=== PATIENT | male | born 1960 | race Caucasian/White ===

== ENCOUNTER 2017-09-26 14:08 | Inpatient (IN) | payer MEDICAID, OTHER ==
[2017-09-26] MEDS ORDERED: LORazepam 2 MG/ML INJ IVP ONE ×2 (14:23→14:44)
[2017-09-26] MEDS ORDERED: NS 1,000 ML IV ONE ×2 (14:24→16:43)
[2017-09-26] MEDS ORDERED: LORazepam 2 MG/ML INJ ONE (14:25)
--- NOTE | 2017-09-26 14:26 | EDPHY ---
H & P Stated Complaint: etoh w/d Time Seen by Provider: 09/26/17 14:18 HPI/ROS: CHIEF COMPLAINT: "I think I have alcohol poisoning" HISTORY OF PRESENT ILLNESS: 56-year-old male history of alcoholism, discharged from [facility] [place] 3 weeks ago for alcohol detoxification, started drinking alcohol again 1 week ago, in the ER with friend complaining of possible alcohol withdrawal. He is experiencing anxiety, tremor, nausea,. Denies hallucination. No seizure. No chest pain. No back pain. [ REVIEW OF SYSTEMS: A ten point review of systems was performed and is negative with the exception of the items mentioned in the HPI PAST MEDICAL & SURGICAL HISTORY: History of alcoholism. Reactive airways disease. SOCIAL HISTORY: Last drink of alcohol 2 hr ago PHYSICAL EXAM (Prior to examination, patient consented to physical exam, hands were washed and my usual and customary physical exam procedures followed) 1) GENERAL: Well-developed, well-nourished, alert and oriented. Appears anxious. Answering questions appropriately 2) HEAD: Normocephalic, atraumatic 3) HEENT: scleral icterus noted. Nasopharynx, oropharynx, clear, no lesions. Dry mucous membranes Ears bilaterally with normal tympanic membranes. 4) NECK: Full range of motion, no meningeal signs. 5) LUNGS: Clear auscultation bilaterally, no wheezes, no rhonchi, no retractions. 6) HEART: Regular rate and rhythm, no murmur, no heave, no gallop. 7) ABDOMEN: No guarding, no rebound, no focal tenderness, negative McBurney's, negative Sena's, negative Rovsing's, negative peritoneal sign, 8) MUSCULOSKELETAL: Moving all extremities, no focal areas of tenderness, no obvious trauma. No peripheral edema or discoloration. 9) BACK: No CVA tenderness, no midline vertebral tenderness, no fluctuance, no step-off, no obvious trauma, no visual or palpable abnormality. 10) SKIN: No rash, no petechiae. 11) Psychiatric: Patient is oriented X 3, there is no agitation. Tremulous DIFFERENTIAL DIAGNOSIS: In no particular order including but not limited to alcohol withdrawal, delirium tremens, alcohol hallucinosis, hepatic encephalopathy - Personal History Current Tetanus Diphtheria and Acellular Pertussis (TDAP): Yes - Medical/Surgical History Other PMH: etoh abuse, kyle knee surgery, reactive airway - Social History Smoking Status: Never smoked Constitutional: Initial Vital Signs Temperature (C) 36.8 C 09/26/17 14:13 Heart Rate 134 H 09/26/17 14:13 Respiratory Rate 18 09/26/17 14:13 Blood Pressure 166/110 H 09/26/17 14:13 O2 Sat (%) 95 09/26/17 14:13 O2 Delivery Mode Room Air Allergies/Adverse Reactions: No Known Allergies Allergy (Unverified 09/26/17 14:13) Home Medications: Medication Instructions Recorded ALBUTEROL SULFATE 09/26/17 Medical Decision Making ED Course/Re-evaluation: 2:26 p.m.: Patient is tremulous, tachycardic. Will administer benzodiazepines , IV fluid, observe patient. 4:50 p.m.: Re-evaluation, the pelvis the patient she did respond well to a benzodiazepines, became progressively more tachycardic, hypertensive, tremulous. He is given further benzodiazepines with minimal response. Recommended admission to the hospital for acute alcohol withdrawal. At this time doubt delirium tremens. He has no hallucination. discussed case with secondary supervising physician Dr. Shan Mack in the ER. Plan will be admission to hospitalist 5:00 p.m.: Consultation with hospitalist Dr. Quinones will admit patient to the ICU for acute alcohol withdrawal - Data Points Laboratory Results: Laboratory Results 09/26/17 14:50 09/26/17 14:50 09/26/17 09/26/17 14:50 14:50 WBC 7.82 10^3/uL 10^3/uL (3.80-9.50) RBC 5.04 10^6/uL 10^6/uL (4.40-6.38) Hgb 16.5 g/dL g/dL (13.7-17.5) Hct 44.7 % % (40.0-51.0) MCV 88.7 fL fL (81.5-99.8) MCH 32.7 pg pg (27.9-34.1) MCHC 36.9 g/dL H g/dL (32.4-36.7) RDW 13.4 % % (11.5-15.2) Plt Count 149 10^3/uL L 10^3/uL (150-400) MPV 9.7 fL fL (8.7-11.7) Neut % (Auto) 79.2 % H % (39.3-74.2) Lymph % (Auto) 14.6 % L % (15.0-45.0) [place] % (Auto) 5.6 % % (4.5-13.0) Eos % (Auto) 0.1 % L % (0.6-7.6) Baso % (Auto) 0.1 % L % (0.3-1.7) Nucleat RBC Rel Count 0.0 % % (0.0-0.2) Absolute Neuts (auto) 6.19 10^3/uL 10^3/uL (1.70-6.50) Absolute Lymphs (auto) 1.14 10^3/uL 10^3/uL (1.00-3.00) Absolute Monos (auto) 0.44 10^3/uL 10^3/uL (0.30-0.80) Absolute Eos (auto) 0.01 10^3/uL L 10^3/uL (0.03-0.40) Absolute Basos (auto) 0.01 10^3/uL L 10^3/uL (0.02-0.10) Absolute Nucleated RBC 0.00 10^3/uL 10^3/uL (0-0.01) Immature Gran % 0.4 % % (0.0-1.1) Immature Gran # 0.03 10^3/uL 10^3/uL (0.00-0.10) Sodium 137 mEq/L mEq/L (135-145) Potassium 3.2 mEq/L L mEq/L (3.3-5.0) Chloride 99 mEq/L mEq/L (97-110) Carbon Dioxide 20 mEq/l L mEq/l (22-31) Anion Gap 18 mEq/L H mEq/L (8-16) BUN 7 mg/dL mg/dL (7-23) Creatinine 0.9 mg/dL mg/dL (0.7-1.3) Estimated GFR > 60 Glucose 114 mg/dL H mg/dL (70-100) Calcium 9.0 mg/dL mg/dL (8.5-10.4) Total Bilirubin 0.8 mg/dL mg/dL (0.1-1.4) Conjugated Bilirubin 0.2 mg/dL mg/dL (0.0-0.5) Unconjugated Bilirubin 0.6 mg/dL mg/dL (0.0-1.1) AST 54 IU/L IU/L (17-59) ALT 45 IU/L IU/L (21-72) Alkaline Phosphatase 119 IU/L IU/L (38-126) Total Protein 6.8 g/dL g/dL (6.3-8.2) Albumin 4.1 g/dL g/dL (3.5-5.0) Lipase 432 IU/L H IU/L (23-300) Ethyl Alcohol 383 mg/dL H mg/dL (0-10) Medications Given: Discontinued Medications Sodium Chloride (Ns) 1,000 mls @ 0 mls/hr IV ONCE ONE PRN Reason: Wide Open Stop: 09/26/17 14:25 Last Admin: 09/26/17 14:46 Dose: 1,000 mls Sodium Chloride (Ns) 1,000 mls @ 3,000 mls/hr IV ONCE ONE Stop: 09/26/17 17:02 Last Admin: 09/26/17 16:43 Dose: 1,000 mls Lorazepam (Ativan Injection) 2 mg IVP EDNOW ONE Stop: 09/26/17 14:24 Last Admin: 09/26/17 14:46 Dose: 2 mg Lorazepam (Ativan Injection) 2 mg IVP EDNOW ONE Stop: 09/26/17 14:45 Last Admin: 09/26/17 16:21 Dose: 2 mg Departure - Departure Disposition: [facility] Acute Clinical Impression: Alcohol withdrawal Qualifiers: Complication of substance-induced condition: with unspecified complication Qualified Code(s): F10.239 - Alcohol dependence with withdrawal, unspecified Condition: Fair
--- NOTE | 2017-09-26 14:55 | CPEKG ---
Heart Rate: 108 RR Interval: 556 P-R Interval: 152 QRSD Interval: 100 QT Interval: 344 QTC Interval: 461 P Corrigan: 53 QRS Corrigan: 27 T Wave Corrigan: 14 EKG Severity - BORDERLINE ECG - EKG Impression: SINUS TACHYCARDIA EKG Impression: BORDERLINE T WAVE ABNORMALITIES Electronically Signed By: Shan Mack 26-Sep-2017 21:36:00
[2017-09-26 15:06] LABS: PLATELET COUNT 149 10^3/uL (150-400)
--- NOTE | 2017-09-26 17:22 | ASMTCMCOM ---
CM Note CM Note Notes: Pt presented to the ED through triage for ETOH withdrawal symptoms. Pt admitted for acute ETOH withdrawal. Spoke w/pt and his friend, Aldair, at bedside. Pt was recently discharged from [facility] approximately 3 wks ago and was involved in their outpatient program until he started drinking again about 1 week ago. As for family and friends support other than Bill, pt states he has a girlfriend and his elderly father. Pt states he completed the [facility] rehabilitation program in [place] ([phone]) about 5 yrs ago and that he has spoken to his criminal investigator, Sekou, who has told him that they would consider accepting him into the program again. Pt hopes to be able to get into [facility] again and regain sobriety. Pt was also provided lists of other ETOH abuse treatment programs (Residential, IOP, OP) and encouraged him to call and inquire about intake appts/interviews. Pt states he has [employer] and Medicaid. Per Aladir, pt is about to be evicted from his housing. CM to follow. Date Signed: 09/26/2017 05:22 PM Electronically Signed By:Violeta Pleitez RN
[2017-09-26] MEDS ORDERED: FLUMAZENIL 0.5 MG/5 ML MDV IVP PRN (19:06)
[2017-09-26] MEDS ORDERED: PROMETHAZINE HCL 25 MG/ML INJ IVP PRN (19:10)
[2017-09-26] MEDS ORDERED: ONDANSETRON 4 MG/2 ML VIAL IVP PRN (19:10)
--- NOTE | 2017-09-26 19:46 | GHP ---
[f rep st] HISTORY AND PHYSICAL DATE OF ADMISSION: 09/26/2017 CHIEF COMPLAINT: Alcohol withdrawal. HISTORY: The patient is a 56-year-old male with a history of alcoholism but he stayed sober for many years. He got engaged in March and decided to just have a couple of drinks to celebrate his new e ngagement and totally fell off the wagon and has been drinking extremely heavily ever since. He rece ntly had a stay at [facility] but started drinking shortly after discharge. He recently fell w hile intoxicated and was hospitalized at [facility] for a cerebral hemorrhage and spent a prolonged time in the ICU. He again started drinking within days of hospital discharge. He drink s a pint per day. Family friend is at bedside. The friend staged an intervention today bringing the patient to the hospital somewhat against his will, although he was having severe tremors and severe withdrawal symptoms already at the time of presentation despite having an alcohol level of 383. PAST MEDICAL HISTORY: 1. Alcoholism. 2. Recent traumatic cerebral hemorrhage. PAST SURGICAL HISTORY: Bilateral total knee arthroplasty. MEDICATIONS: Please see computerized record for full detailed list. ALLERGIES: No known drug allergies. SOCIAL HISTORY: No smoking, but he does chew tobacco. Alcohol history as above. 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 REVIEW OF SYSTEMS: Complete review of systems obtained. Review of systems negative regarding consti tutional, HEENT, GI, pulmonary, cardiovascular, , hematology, skin, musculoskeletal, endocrine, psy ch except for positives as in HPI. FAMILY HISTORY: Reviewed, noncontributory to presenting complaint. PHYSICAL EXAMINATION: GENERAL: Well-developed, well-nourished male, in no acute distress. VITAL SI GNS: Temperature 36.8, pulse 134, blood pressure 166/110, saturating 96% on room air. EYES: Normal conjunctivae. Pupils react to light. ENT: Normal ears and nose. Hearing intact. Normal teeth. Oropharynx moist. NECK: Trachea midline. No thyromegaly. CHEST: Normal effort. LUNGS: Clear to auscultation bilaterally. CARDIOVASCULAR: Tachycardic. No murmur, no lower extremity edema. ABDO MEN: Soft, nontender. No hepatosplenomegaly. SKIN: Warm, dry, intact without rash. MUSCULOSKELET AL: Strength 5/5 upper and lower extremities. NEUROLOGIC: Cranial nerves intact, normal sensation to light touch. PSYCH: Alert and oriented x3. Normal affect. Normal judgment. Normal memory. LABORATORY DATA: White count 7.82, hematocrit 44.7, platelets 149. Sodium 137, potassium 3.2, chlor duane 99, bicarb 20, BUN 7, creatinine 0.9, glucose 114. LFTs are negative. Lipase is 432. Alcohol l evel 383. EKG viewed by me. My personal interpretation is sinus tachycardia. No ST-T wave changes. ASSESSMENT/PLAN: 1. Alcohol withdrawal: He has already received multiple high doses of Ativan in the emergency room. Anticipate a high level of benzodiazepine and a severe withdrawal. He is therefore being admitted to ICU. 2. Recent traumatic cerebral hemorrhage due to falling down while intoxicated. The patient denies a ny ongoing deficits. 3. Hypokalemia: This will be repleted per protocol and will follow electrolytes. CODE STATUS: Full. ADMISSION STATUS: Will admit to inpatient. I anticipate greater than 2 midnights and anticipate sev ere withdrawal. DVT PROPHYLAXIS: He is high risk. Will place him on subcu Lovenox. /[id number]/MODL
[2017-09-26] MEDS: FAMOTIDINE 20 MG TAB PO SCH (20:12)
[2017-09-26] MEDS: THIAMINE HCL 500 MG in NS 100 ML IV SCH (20:17)
[2017-09-26] MEDS: traZODone 50 MG TAB PO SCH (21:34)
[2017-09-27] MEDS ORDERED: MAGNESIUM SULF 2 GM/WATER 50 ML IV ONE (03:59)
[2017-09-27] MEDS: ENOXAPARIN 40 MG/0.4 ML SYR SC SCH (08:16)
[2017-09-27] MEDS: FAMOTIDINE 20 MG TAB PO SCH ×2 (08:16→21:30)
[2017-09-27] MEDS: LISINOPRIL 10 MG TAB PO SCH (08:16)
[2017-09-27] MEDS: SERTRALINE HCL 50 MG TAB PO SCH (08:16)
[2017-09-27] MEDS: LORazepam 2 MG/ML INJ IVP PRN ×7 (08:16→18:44)
[2017-09-27] MEDS: THIAMINE HCL 500 MG in NS 100 ML IV SCH (09:00)
[2017-09-27] MEDS: ACETAMINOPHEN 325 MG TAB PO PRN (10:03)
[2017-09-27] MEDS ORDERED: PROTOCOL K PHOSPHATE 1 DOSE IV PRN (10:07)
[2017-09-27] MEDS ORDERED: PROTOCOL MAGNESIUM 1 DOSE IV PRN (10:07)
[2017-09-27] MEDS ORDERED: PROTOCOL POTASSIUM 1 DOSE MISC PRN (10:07)
[2017-09-27] MEDS ORDERED: PROTOCOL CALCIUM 1 DOSE IV PRN (10:07)
[2017-09-27] MEDS: NALTREXONE HCL 50 MG TAB PO SCH (10:34)
--- NOTE | 2017-09-27 10:41 | PDMN ---
Medical Necessity Medical necessity: Pt meets IP criteria per & AMEYA M-595; est los >2 mn for eval/tx of severe alcohol withdrawal; admit to ICU for close monitoring, CIWA protocol, IVFs & IV Thiamine; hx recent traumatic cerebral hemorrhage; per H&P & order 09/26/17
--- NOTE | 2017-09-27 11:41 | HOSPPROG ---
Hospitalist Progress Note Assessment/Plan: 56 yo M w alcohol dependence and alcohol withdrawal withdrawal: severe, and at BAL 383 father notes alcohol dependence continue scheduled librium and prn ativan high risk for severe withdrawal alcohol dependence: did well after a 13 [facility] residential program but has done porrly since relapse 4 years sobriety at that point hypokalemia: replete dispo: [facility]: passive suicidality father notes he has mentioned it multiple times, recent stay at [facility] M1 HOLD IF TRIES TO LEAVE AMA! Subjective: case d/w dr miller. father notes passive suicidality, years of alcohol dependence refractory to treatment Objective: Vital Signs Temp Pulse Resp BP Pulse Ox 36.5 C 106 H 18 169/108 H 94 09/27/17 08:00 09/27/17 10:00 09/27/17 10:00 09/27/17 10:00 09/27/17 10:00 Laboratory Results 09/27/17 10:59 09/26/17 09/27/17 09/28/17 05:59 05:59 05:59 Intake Total 4812 500 Balance 4812 500 - Physical Exam Constitutional: no apparent distress, appears nourished Eyes: PERRL, anicteric sclera Ears, Nose, Mouth, Throat: moist mucous membranes, hearing normal Cardiovascular: regular rate and rhythym, no murmur, rub, or gallop Respiratory: no respiratory distress, no rales or rhonchi Gastrointestinal: normoactive bowel sounds, soft, non-tender abdomen Genitourinary: no bladder fullness, No [place] in urethra Skin: warm, normal color Musculoskeletal: full muscle strength Neurologic: AAOx3 ICD10 Worksheet Patient Problems: Problems Problem Status Onset Alcohol withdrawal Acute
[2017-09-27] MEDS ORDERED: K PHOS 15 MMOL in D5W 250 ML IV ONE (12:00)
[2017-09-27] MEDS ORDERED: CALCIUM GLUCONATE 50 ML IV ONE (13:12)
[2017-09-27] MEDS ORDERED: POTASSIUM CL 10 MEQ TAB PO ONE (13:15)
--- NOTE | 2017-09-27 13:29 | GCON ---
[f rep st] CONSULTATION CRITICAL CARE CONSULTATION DATE OF CONSULTATION: 09/27/2017 REASON FOR CONSULTATION: Alcohol withdrawal. HISTORY OF PRESENT ILLNESS: The patient is a 56-year-old chronic alcoholic who just got out of [facility] a week ago for alcohol rehabilitation. He started drinking the night he was discharged f rom there. A friend of his apparently staged an intervention and brought the patient to the emergenc y department yesterday. He was found to have tremors and signs and symptoms of alcohol withdrawal de spite initial blood alcohol of 383. The patient apparently does have a history of depression. He dr inks large amounts of vodka frequently. History from the patient is quite unreliable. He was hospit alized at [facility] this year for cerebral hemorrhage when he fell and struck the back of [facility] head. He apparently was in the hospital there for approximately 2 weeks. PAST MEDICAL HISTORY: Unremarkable for active medical problems. He has had no significant surgeries , only knee arthroplasties. OUTPATIENT MEDICATIONS: Included trazodone, Zoloft, Revia, Zestril, albuterol by metered-dose inhale r, and p.r.n. sildenafil. SOCIAL HISTORY: The patient is a nonsmoker. Alcohol is as described above. He lives alone, has a g irlfriend. 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 He is probably going to get evicted from his apartment for non-payment of rent in September, and is at risk for homelessness. His father has been intervening on his behalf. The patient is adopted. FAMILY HISTORY: Adopted. REVIEW OF SYSTEMS: A 10-point review of systems is negative except as mentioned above. He, apparent ly, does have some mild intermittent asthma. Depression and hypertension are also issues despite him denying medical problems. PHYSICAL EXAMINATION: GENERAL: Reveals a relatively well-kept gentleman who is in no acute distress . He is conversant and inaccurate regarding his history and/or confabulating. Blood pressure is 170 /100, heart rate 106, respiratory rate 18. He is on room air saturation at 94%. He is afebrile. He does have a tremor. HEENT/NECK: Unremarkable for lymphadenopathy or thyromegaly. There is no scle ral icterus. There is no jugular venous distention. Mucous membranes are moist. CHEST: Clear bila terally. There are no abnormal sounds. HEART: Tachycardic. There are no significant murmurs or ga llops. ABDOMEN: Soft and nontender. Bowel sounds are present. There is no organomegaly. EXTREMIT IES: Negative for edema, cords, or tenderness. NEUROLOGIC: Nonfocal. He is oriented x3. DATA REVIEWED: White blood cell count is 7,800, hematocrit 44, platelets 149,000. Basic metabolic p nena is remarkable for a potassium of 3.5, normal BUN and creatinine, a low ionized calcium at 1.06, low phosphorus of 1.5, and magnesium after replacement of 1.9. Lipase on admission was 432. Liver f unction studies were normal. BAL on admission was 383. ASSESSMENT AND PLAN: 1. Chronic and acute alcohol abuse. 2. Alcohol withdrawal. 3. Depression. 4. History of hypertension. 5. History of mild asthma. The patient is currently doing fairly well, with a low Clinical [place] Withdrawal Assessment scale of approximately 7. He is at high risk for severe alcohol withdrawal, which likely will get signifi cantly worse before improving. He will thus be kept in the intensive care unit as step-down status. He may or may not require a Precedex drip. Librium will be started. Intravenous fluids will be con tinued. Electrolytes will be followed. Thiamine will be continued. The patient's chronic alcoholism and social situation was discussed with the patient's father who is quite upset and at wits end regarding his son's alcoholism and his failed rehabilitation. Underlying depression certainly is an issue, and the patient would appear to be almost slowly suicidal in his d etermination to continue heavy drinking. These issues will need to be addressed prior to discharge. Further plans and recommendations will be made based on his progress over the next several days. /[id number]/MODL
[2017-09-27] MEDS: chlordiazePOXIDE 25 MG CAP PO SCH ×2 (15:17→21:30)
[2017-09-27] MEDS: DEXMEDETOMIDINE IN 0.9 % NACL 50 ML IV SCH ×2 (16:36)
[2017-09-27] MEDS ORDERED: HALOPERIDOL LACT 5 MG/ML INJ IVP PRN (17:44)
--- NOTE | 2017-09-27 17:56 | PDINTPN ---
Patient Financial Services Specialist Progress Note Assessment/Plan: Assessment: Patient significantly escalated regarding his alcohol withdrawal late this afternoon. Pulled out all IVs, trying to leave, tremulous, agitated, possibly at risk for combativeness. Security at bedside. Trying to talk the patient down. Restraints will likely be needed. Order placed. Haldol ordered, IM may be needed initially. Precedex and Ativan to be restarted intravenously as soon as possible. A medical detainer will be placed. Objective: Vital Signs Temp Pulse Resp BP Pulse Ox 37.4 C 103 H 18 180/91 H 98 09/27/17 16:00 09/27/17 16:00 09/27/17 16:00 09/27/17 16:00 09/27/17 16:00 Laboratory Results 09/27/17 10:59 09/26/17 09/27/17 09/28/17 05:59 05:59 05:59 Intake Total 4812 500 Balance 4812 500 ICD10 Worksheet Patient Problems: Problems Problem Status Onset Alcohol withdrawal Acute
[2017-09-27] MEDS ORDERED: HALOPERIDOL LACT 5 MG/ML INJ IM ONE (17:57)
[2017-09-27] MEDS ORDERED: DEXMEDETOMIDINE HCL 400 MCG in NS 100 ML IV SCH (18:00)
[2017-09-27] MEDS: traZODone 50 MG TAB PO SCH (21:30)
[2017-09-27] MEDS ORDERED: POTASSIUM Cl (KCl) 50 ML IV ONE (21:33)
[2017-09-27] MEDS: POTASSIUM Cl (KCl) 100 ML IV SCH (22:12)
[2017-09-28] MEDS: POTASSIUM Cl (KCl) 100 ML IV SCH ×3 (00:15→09:10)
[2017-09-28] MEDS: DEXMEDETOMIDINE IN 0.9 % NACL 50 ML IV SCH ×9 (01:04→18:26)
[2017-09-28] MEDS: NS 1,000 ML IV SCH (04:46)
[2017-09-28] MEDS: LORazepam 2 MG/ML INJ IVP PRN ×7 (04:49→20:35)
[2017-09-28] MEDS: ENOXAPARIN 40 MG/0.4 ML SYR SC SCH (08:11)
[2017-09-28] MEDS: FAMOTIDINE 20 MG TAB PO SCH ×2 (08:24→19:37)
[2017-09-28] MEDS: chlordiazePOXIDE 25 MG CAP PO SCH (09:03)
[2017-09-28] MEDS: NALTREXONE HCL 50 MG TAB PO SCH (09:07)
[2017-09-28] MEDS: SERTRALINE HCL 50 MG TAB PO SCH (09:09)
[2017-09-28] MEDS: LISINOPRIL 10 MG TAB PO SCH (09:09)
[2017-09-28] MEDS: THIAMINE HCL 500 MG in NS 100 ML IV SCH (09:10)
--- NOTE | 2017-09-28 09:46 | HOSPPROG ---
Hospitalist Progress Note Assessment/Plan: 56 yo M w alcohol dependence and alcohol withdrawal withdrawal: severe, and at BAL 383 father notes alcohol dependence now in delirium tremens tried to leave AMA precedex [facility] medical [facility]ainer alcohol dependence: [facility] but has done porrly since relapse 4 years sobriety at that point hypokalemia: replete dispo: step down proph: lmwh suicidality: passive suicidality father notes he has mentioned it multiple times, recent stay at [facility] now on medical detainer 40' crit care Subjective: agitated overnight requiring restraints, precedex. case d/w dr nathan Objective: Vital Signs Temp Pulse Resp BP Pulse Ox 36.8 C 102 H 18 158/101 H 95 09/28/17 07:00 09/28/17 09:00 09/28/17 08:21 09/28/17 08:21 09/28/17 08:21 Laboratory Results 09/28/17 04:30 09/27/17 09/28/17 09/29/17 05:59 05:59 05:59 Intake Total 4812 8236 Output Total 5450 1850 Balance 4812 6838 -3119 - Physical Exam Constitutional: no apparent distress, appears nourished, other (somnolent bur arousable) Eyes: PERRL, anicteric sclera Ears, Nose, Mouth, Throat: moist mucous membranes, hearing normal Cardiovascular: regular rate and rhythym, no murmur, rub, or gallop Respiratory: no respiratory distress, no rales or rhonchi Gastrointestinal: normoactive bowel sounds, soft, non-tender abdomen Genitourinary: no bladder fullness, No [place] in urethra Skin: warm, normal color Musculoskeletal: other (dorsum of R heand w erythema, warmth. site of IV infiltration) Neurologic: No AAOx3 Psychiatric: No interacting appropriately, No not anxious, No not encephalopathic ICD10 Worksheet Patient Problems: Problems Problem Status Onset Alcohol withdrawal Acute
[2017-09-28] MEDS: LORazepam 2 MG/ML INJ IVP SCH ×2 (11:02→17:38)
--- NOTE | 2017-09-28 13:50 | PDINTPN ---
Rail Signal Mechanic Progress Note Assessment/Plan: 56 M with chronic alcohol dependence who recently completed rehab and returned to alcohol consumption immediately, admitted 09/26 with etoh wd despite BAL of > 300. He was treated conservatively at first but escalated 09/27 and required precedex drip in addition to scheduled benzos. * ETOH wd- apparently failed rehab and now in full withdrawal/DTs. Precedex is working but will need daily wake-up/titration to see when he clears. He may need eventual plan to include etoh with admission orders since he apparently has limited intention of abstaining. * SDH- admitted [facility] 07/24 thru 08/04 with mechanical fall and non-operable SDH, stable over 3 [address]s. That stay also complicated by alcohol wd, as well as at [facility] 09/07. If he doesnt clear, might consider repeat CT to r/o chronic SDH Subjective: sedated on precedex Objective: Vital Signs Temp Pulse Resp BP Pulse Ox 36.8 C 78 20 148/82 H 97 09/28/17 07:00 09/28/17 11:45 09/28/17 10:59 09/28/17 10:59 09/28/17 10:59 Laboratory Results 09/28/17 04:30 09/27/17 09/28/17 09/29/17 05:59 05:59 05:59 Intake Total 4812 8236 980 Output Total 5450 1850 Balance 4812 4873 -919 Physical Exam - Physical Exam General Appearance: no apparent distress, obtunded EENT: PERRL/EOMI Neck: supple Respiratory: lungs clear, normal breath sounds, No respiratory distress, No accessory muscle use Cardiac/Chest: regular rate, rhythm, No edema Abdomen: non-tender, soft Skin: normal color, warm/dry, No cyanosis Lymphatic: no adenopathy Extremities: No pedal edema Neuro/Psych: cognition abnormalities ICD10 Worksheet Patient Problems: Problems Problem Status Onset Alcohol withdrawal Acute
[2017-09-28] MEDS ORDERED: POTASSIUM CL 10 MEQ TAB PO ONE (18:41)
[2017-09-28] MEDS: traZODone 50 MG TAB PO SCH (19:37)
[2017-09-28] MEDS: DEXMEDETOMIDINE HCL 400 MCG in NS 100 ML IV SCH ×2 (20:37→22:59)
[2017-09-29] MEDS: LORazepam 2 MG/ML INJ IVP SCH ×4 (00:10→17:40)
[2017-09-29] MEDS: DEXMEDETOMIDINE HCL 400 MCG in NS 100 ML IV SCH ×5 (02:09→21:25)
[2017-09-29] MEDS: ENOXAPARIN 40 MG/0.4 ML SYR SC SCH (07:25)
[2017-09-29] MEDS: FAMOTIDINE 20 MG TAB PO SCH ×2 (07:25→20:13)
[2017-09-29] MEDS: LISINOPRIL 10 MG TAB PO SCH (07:25)
[2017-09-29] MEDS: SERTRALINE HCL 50 MG TAB PO SCH (07:25)
[2017-09-29] MEDS: NALTREXONE HCL 50 MG TAB PO SCH (07:25)
[2017-09-29] MEDS: ACETAMINOPHEN 325 MG TAB PO PRN ×3 (07:25→17:39)
[2017-09-29] MEDS: LORazepam 2 MG/ML INJ IVP PRN ×2 (07:26→21:25)
--- NOTE | 2017-09-29 08:48 | HOSPPROG ---
Hospitalist Progress Note Assessment/Plan: 56 yo M w alcohol dependence and alcohol withdrawal withdrawal: severe, BAL 383 on admission. CIWA overnight 14. Still on precedex with scheduled ativan. Required additional IV ativan overnight. wean precedex today as able cont scheduled plus prn ativan medical detainer alcohol dependence: did well after a 13 month residential program but has done poorly since relapse, 4 years sobriety at that point CM to provide resource counseling hypokalemia: replete elbow pain: pt suspects gout send uric acid, start colchicine if elevated (prefer to avoid nsaids in this alcoholic with recent ICH) dispo: cont inpt, SDU proph: lmwh suicidality: passive suicidality father notes he has mentioned it multiple times, [facility] now on medical detainer TLC when medically clear 30' crit care Subjective: Pt is sedated, awakens to sternal rub, able to tell me his full name. Per RN, quite agitated with decrease in precedex, requiring additional IV ativan doses overnight. Objective: Vital Signs Temp Pulse Resp BP Pulse Ox 37.4 C 94 20 124/83 H 94 09/29/17 07:21 09/29/17 07:21 09/29/17 07:21 09/29/17 07:21 09/29/17 07:21 Laboratory Results 09/29/17 05:20 09/28/17 09/29/17 09/30/17 05:59 05:59 05:59 Intake Total 8236 0789 750 Output Total 5450 6475 Balance 2786 -0168 750 - Physical Exam Constitutional: no apparent distress Eyes: PERRL Ears, Nose, Mouth, Throat: moist mucous membranes Cardiovascular: regular rate and rhythym Respiratory: no respiratory distress Gastrointestinal: normoactive bowel sounds, soft, non-tender abdomen Skin: warm Musculoskeletal: full muscle strength ICD10 Worksheet Patient Problems: Problems Problem Status Onset Alcohol withdrawal Acute
[2017-09-29] MEDS: THIAMINE HCL 500 MG in NS 100 ML IV SCH (09:04)
--- NOTE | 2017-09-29 12:52 | PDINTPN ---
Physiotherapist'S Assistant Progress Note Assessment/Plan: 56 M with chronic alcohol dependence who recently completed rehab and returned to alcohol consumption immediately, admitted 09/26 with etoh wd despite BAL of > 300. He was treated conservatively at first but escalated 09/27 and required precedex drip in addition to scheduled benzos. * ETOH wd- remains dependent on CIWA/precedex as he becomes agitated and at risk for self harm at lower doses. * SDH- admitted [place] 07/24 thru 08/04 with mechanical fall and non-operable SDH, stable over 3 head CTs. That stay also complicated by alcohol wd, as well as at [facility] 09/07. 09/29/17 12:49 Subjective: sedated on precedex Objective: Vital Signs Temp Pulse Resp BP Pulse Ox 36.5 C 75 19 120/78 97 09/29/17 11:26 09/29/17 11:26 09/29/17 11:26 09/29/17 11:26 09/29/17 11:26 Laboratory Results 09/29/17 05:20 09/28/17 09/29/17 09/30/17 05:59 05:59 05:59 Intake Total 8236 3779 1900 Output Total 5450 6475 Balance 4596 -2093 1900 Physical Exam - Physical Exam General Appearance: no apparent distress, obtunded EENT: PERRL/EOMI Neck: supple Respiratory: lungs clear, normal breath sounds, No respiratory distress, No accessory muscle use Cardiac/Chest: regular rate, rhythm, No edema Abdomen: non-tender, soft, No distended Skin: normal color, warm/dry, No cyanosis Lymphatic: no adenopathy Extremities: No pedal edema Neuro/Psych: cognition abnormalities ICD10 Worksheet Patient Problems: Problems Problem Status Onset Alcohol withdrawal Acute
--- NOTE | 2017-09-29 15:26 | ASMTCMCOM ---
CM Note CM Note Notes: Patient continues to be in W/D. CIWA=6 Date Signed: 09/29/2017 03:25 PM Electronically Signed By:Lissa Dolan LCSW
[2017-09-29] MEDS: THIAMINE HCL 100 MG TAB PO SCH (16:05)
[2017-09-29] MEDS: NICOTINE 7 MG/24 HR PATCH TD SCH (18:00)
[2017-09-29] MEDS: NS 1,000 ML IV SCH (20:11)
[2017-09-29] MEDS: traZODone 50 MG TAB PO SCH (20:13)
[2017-09-30] MEDS: LORazepam 2 MG/ML INJ IVP SCH ×4 (00:38→18:10)
[2017-09-30] MEDS: DEXMEDETOMIDINE HCL 400 MCG in NS 100 ML IV SCH ×4 (00:40→18:48)
[2017-09-30] MEDS: SERTRALINE HCL 50 MG TAB PO SCH (08:59)
[2017-09-30] MEDS: FAMOTIDINE 20 MG TAB PO SCH ×2 (08:59→19:44)
[2017-09-30] MEDS: LISINOPRIL 10 MG TAB PO SCH (08:59)
[2017-09-30] MEDS: THIAMINE HCL 100 MG TAB PO SCH (08:59)
[2017-09-30] MEDS: NALTREXONE HCL 50 MG TAB PO SCH (08:59)
[2017-09-30] MEDS: ENOXAPARIN 40 MG/0.4 ML SYR SC SCH (08:59)
[2017-09-30] MEDS: NICOTINE 7 MG/24 HR PATCH TD SCH (09:00)
[2017-09-30] MEDS: THIAMINE HCL 500 MG in NS 100 ML IV SCH (09:00)
[2017-09-30] MEDS ORDERED: POTASSIUM CL 10 MEQ TAB PO ONE (09:58)
--- NOTE | 2017-09-30 12:41 | PDINTPN ---
Medical Billing Supervisor Progress Note Assessment/Plan: 56 M with chronic alcohol dependence who recently completed rehab and returned to alcohol consumption immediately, admitted 09/26 with etoh wd despite BAL of > 300. He was treated conservatively at first but escalated 09/27 and required precedex drip in addition to scheduled benzos. * ETOH wd- much more alert and oriented today with reduced ativna requirement as well as precedex. Titrate off drip with possible transfer later today * SDH- admitted [place] 07/24 thru 08/04 with mechanical fall and non-operable SDH, stable over 3 head CTs. That stay also complicated by alcohol wd, as well as at [facility] 09/07. Subjective: feels better Objective: Vital Signs Temp Pulse Resp BP Pulse Ox 37.0 C 82 31 H 144/80 H 100 09/30/17 12:00 09/30/17 12:00 09/30/17 12:00 09/30/17 12:00 09/30/17 12:00 Laboratory Results 09/30/17 04:40 09/29/17 09/30/17 10/01/17 05:59 05:59 05:59 Intake Total 2659 6402 Output Total 5847 3513 Balance -4091 6857 Physical Exam - Physical Exam General Appearance: alert, no apparent distress EENT: PERRL/EOMI Neck: supple Respiratory: lungs clear, normal breath sounds, No respiratory distress, No accessory muscle use Cardiac/Chest: regular rate, rhythm, No edema Abdomen: non-tender, soft, No distended Skin: normal color, warm/dry, No cyanosis Lymphatic: no adenopathy Extremities: No pedal edema Neuro/Psych: alert, normal mood/affect, oriented x 3 ICD10 Worksheet Patient Problems: Problems Problem Status Onset Alcohol withdrawal Acute
--- NOTE | 2017-09-30 12:55 | ASMTCMCOM ---
CM Note CM Note Notes: Spoke with patient's nurse who states patient is ambivalent about quitting drinking. Patient's dad, Aldair Lora had questions about d/c plan. Left a message for him on his cell [phone] and will await his return call. Patient just was released from [employer] and returned to drinking immediately. CM will follow. Date Signed: 09/30/2017 12:55 PM Electronically Signed By:Sparkle Menon LCSW
--- NOTE | 2017-09-30 15:27 | HOSPPROG ---
Hospitalist Progress Note Assessment/Plan: 56 yo M w alcohol dependence and alcohol withdrawal withdrawal: severe, BAL 383 on admission. CIWA up to 17 overnight. Still on precedex with scheduled ativan. Required additional IV ativan overnight. wean precedex today as able cont scheduled plus prn ativan medical detainer alcohol dependence: did well after a 13 month residential program but has done poorly since relapse, 4 years sobriety at that point CM to provide resource counseling hypokalemia: replete elbow pain: uric acid low, not gout prn ice dispo: cont inpt, SDU until precedex dc'd proph: lmwh suicidality: passive suicidality father notes he has mentioned it multiple times, recent stay at [facility] now on medical detainer TLC when medically clear 30' crit care Subjective: Pt doing better today, CIWA zero this am, still on precedex, but interacting. Denies CP or SOB. Unsteady on his feet. Objective: Vital Signs Temp Pulse Resp BP Pulse Ox 37.0 C 82 31 H 144/80 H 100 09/30/17 12:00 09/30/17 12:00 09/30/17 12:00 09/30/17 12:00 09/30/17 12:00 Laboratory Results 09/30/17 04:40 09/29/17 09/30/17 10/01/17 05:59 05:59 05:59 Intake Total 3779 6404 480 Output Total 4155 4738 2540 Balance -2696 6769 -0360 - Physical Exam Constitutional: no apparent distress Eyes: PERRL Ears, Nose, Mouth, Throat: moist mucous membranes Cardiovascular: regular rate and rhythym Respiratory: no respiratory distress Skin: warm Musculoskeletal: full muscle strength Neurologic: AAOx3 Psychiatric: interacting appropriately ICD10 Worksheet Patient Problems: Problems Problem Status Onset Alcohol withdrawal Acute
[2017-09-30] MEDS: traZODone 50 MG TAB PO SCH (19:44)
[2017-09-30] MEDS ORDERED: POTASSIUM CL 20 MEQ/15 ML UDCUP PO ONE (21:00)
[2017-09-30] MEDS ORDERED: LORazepam 1 MG TAB ONE (23:58)
[2017-10-01] MEDS: LORazepam 1 MG TAB PO SCH ×2 (00:15→06:16)
[2017-10-01] MEDS: ACETAMINOPHEN 325 MG TAB PO PRN (02:14)
[2017-10-01] MEDS: NICOTINE 7 MG/24 HR PATCH TD SCH (08:35)
[2017-10-01] MEDS: SERTRALINE HCL 50 MG TAB PO SCH (08:36)
[2017-10-01] MEDS: FAMOTIDINE 20 MG TAB PO SCH ×2 (08:36→20:40)
[2017-10-01] MEDS: NALTREXONE HCL 50 MG TAB PO SCH (08:36)
[2017-10-01] MEDS: LISINOPRIL 10 MG TAB PO SCH (08:36)
[2017-10-01] MEDS: THIAMINE HCL 100 MG TAB PO SCH (08:36)
[2017-10-01] MEDS: ENOXAPARIN 40 MG/0.4 ML SYR SC SCH (08:36)
--- NOTE | 2017-10-01 10:01 | HOSPPROG ---
Hospitalist Progress Note Assessment/Plan: 56 yo M w alcohol dependence and alcohol withdrawal withdrawal: severe, BAL 383 on admission. CIWAs down to 4. Off Precedex. d/c scheduled ativan cont CIWA and prn ativan alcohol dependence: did well after a 13 month residential program but has done poorly since relapse, 4 years sobriety at that point CM to provide resource counseling, sobriety plan hypokalemia: replete elbow pain: uric acid low, not gout prn ice dispo: cont inpt, transfer to med/surg proph: lmwh suicidality: passive suicidality father notes he has mentioned it multiple times, recent stay at [email or web address] TLC eval requested, they will eval today Subjective: Pt feels much better today. Denies CP or SOB. Off precedex last night. No fevers/chills. A bit unsteady on his feet. Objective: Vital Signs Temp Pulse Resp BP Pulse Ox 36.9 C 120 H 19 146/97 H 95 10/01/17 08:00 10/01/17 08:00 10/01/17 08:00 10/01/17 08:00 10/01/17 08:00 Laboratory Results 09/30/17 19:38 09/30/17 10/01/17 10/02/17 05:59 05:59 05:59 Intake Total 6404 6079 Output Total 2625 5350 300 Balance 3779 729 -300 - Physical Exam Constitutional: no apparent distress Eyes: PERRL Ears, Nose, Mouth, Throat: moist mucous membranes Cardiovascular: regular rate and rhythym Respiratory: no respiratory distress, clear to auscultation Gastrointestinal: normoactive bowel sounds, soft, non-tender abdomen Skin: warm Musculoskeletal: full muscle strength Neurologic: AAOx3 Psychiatric: interacting appropriately ICD10 Worksheet Patient Problems: Problems Problem Status Onset Alcohol withdrawal Acute
[2017-10-01] MEDS: LORazepam 1 MG TAB PO PRN ×3 (12:42→20:40)
--- NOTE | 2017-10-01 12:49 | ASMTLCPROG ---
Notes Note: Notes: TLC Fast Assess request from hospitalist, Dr. Pinto who reported pt having passive suicidal ideation. Met with pt and introducted myself and informed him that Dr. Pinto had requested I meet with him due to concern of possible suicidal ideation. Pt reported that his elderly father had recently told pt that "if you keep drinking, you're going to ." Pt denied having any active suicidal ideation/intent/plan to harm self and contracts for safety in hospital setting. He reported "I have two wonderful children, a son and a daughter. I've been in a relationship with my girlfriend for the past 7 months. He reported having had a prior period of sobriety for 5 years. He then described he and his family are working on his plans for follow up rehab help through [facility] program at [facility]. He also mentioned having been on a camping trip in June 2017 and was carrying some items in his arms but then his foot got stuck briefly between his vehicle tire and a curb, resulting in his falling. He reported he did not want to fall forward and break the items he was carrying, so he turned backward, hoping to break his fall with his buttocks but then his head "whiplashed" backward and hit the ground hard also. He reported feeling that his memory/cognition has been effected somewhat since that time. I debriefed with Dr. Pinto, nurse, Dora, and Casemanager, Sparkle Menon. Dr. Pinto noted plans to transfer pt to a medical floor for a day, then will be discharging. Thank you for this consult request. Vincent Sewell, MS, PAPER MACHINE BACKTENDER, LAC, NCC, [facility] Clinical Intake Lead [phone] Date Signed: 10/01/2017 12:48 PM Electronically Signed By:Vincent Sewell
--- NOTE | 2017-10-01 16:11 | PDINTPN ---
Relationship Executive Progress Note Assessment/Plan: 56 M with chronic alcohol dependence who recently completed rehab and returned to alcohol consumption immediately, admitted 09/26 with etoh wd despite BAL of > 300. He was treated conservatively at first but escalated 09/27 and required precedex drip in addition to scheduled benzos. * ETOH wd- resolving. Has plans for rehab and suggested additional programs such as [facility]" * SDH- admitted [place] 07/24 thru 08/04 with mechanical fall and non-operable SDH, stable over 3 head [address]s. That stay also complicated by alcohol wd, as well as at [facility] 09/07. * Dispo: OK for transfer 10/01/17 16:10 Subjective: much more alert; off precedex Objective: Vital Signs Temp Pulse Resp BP Pulse Ox 36.6 C 111 H 18 145/95 H 96 10/01/17 12:00 10/01/17 12:43 10/01/17 12:00 10/01/17 12:43 10/01/17 12:00 Laboratory Results 09/30/17 19:38 09/30/17 10/01/17 10/02/17 05:59 05:59 05:59 Intake Total 6404 6079 Output Total 2625 5350 800 Balance 3779 729 -800 Physical Exam - Physical Exam General Appearance: alert, no apparent distress EENT: PERRL/EOMI Neck: supple Respiratory: lungs clear, normal breath sounds, No respiratory distress, No accessory muscle use Cardiac/Chest: regular rate, rhythm, No edema Abdomen: non-tender, soft, No distended Skin: normal color, warm/dry, No cyanosis Lymphatic: no adenopathy Extremities: No pedal edema Neuro/Psych: alert, normal mood/affect, oriented x 3 ICD10 Worksheet Patient Problems: Problems Problem Status Onset Alcohol withdrawal Acute
[2017-10-01] MEDS: traZODone 50 MG TAB PO SCH (20:40)
[2017-10-02] MEDS: LORazepam 2 MG/ML INJ IVP PRN (07:25)
[2017-10-02] MEDS: NALTREXONE HCL 50 MG TAB PO SCH (07:29)
[2017-10-02] MEDS: SERTRALINE HCL 50 MG TAB PO SCH (07:29)
[2017-10-02] MEDS: FAMOTIDINE 20 MG TAB PO SCH (07:29)
[2017-10-02] MEDS: THIAMINE HCL 100 MG TAB PO SCH (07:30)
[2017-10-02] MEDS: LISINOPRIL 10 MG TAB PO SCH (07:30)
[2017-10-02] MEDS: CARVEDILOL 3.125 MG TAB PO SCH ×2 (09:04→18:07)
[2017-10-02] MEDS: ENOXAPARIN 40 MG/0.4 ML SYR SC SCH (09:05)
[2017-10-02] MEDS: NICOTINE 7 MG/24 HR PATCH TD SCH (09:06)
[2017-10-02 16:34] VITALS: BP 160/93
--- NOTE | 2017-10-02 18:01 | GDS ---
[f rep st] DISCHARGE SUMMARY DISCHARGE DIAGNOSES: 1. Acute alcohol withdrawal, resolved. 2. History of alcohol dependence. 3. Hypokalemia, resolved. 4. Superficial thrombophlebitis of the right upper extremity. 5. Passive suicidality, cleared by TLC evaluation for discharge. CONSULTANTS: Dr. Ceasar Cedeno, Pulmonology. HISTORY: For details please see history and physical dated September 26, 2017. In brief, the patient is a 56-year-old male with history of alcohol dependence who presented to the emergency department in [facility] alcohol withdrawal. He was admitted to hospital for further management. HOSPITAL COURSE: Patient was admitted to the intensive care unit after receiving multiple doses of A tivan in the emergency department. He ultimately required Precedex for several days. This was able to be weaned off and he was transitioned to p.r.n. Ativan. His CIWA score at the time of discharge i s 0. He has a sobriety plan in place and will attend outpatient treatment program. He was noted to be quite hypertensive and was started on both lisinopril and Coreg with improvement. DISPOSITION: Patient is discharged home in stable condition. FOLLOWUP: He is to follow up with his primary care physician, Dr. Gaona. DISCHARGE MEDICATIONS: Please see [employer] completed outpatient medication list. New medications on discharge include Coreg 3.125 mg p.o. twice daily #60 no refills; lisinopril 10 mg p.o. daily #30 no refills; Pepcid 20 mg p.o. twice daily; thiamine 100 mg p.o. daily #30 no refills. He will continue all other outpatient medications as previously prescribed. /[id number]/MODL
== END 2017-10-02 18:00 | disposition home or self-care (01) | DRG 775 ==
LOC: OBSVTOIN 17:25 → F2N 18:52 → F3E 10-01 12:03
PROVIDERS: ADMIT Internal Medicine; ATTEND Hospitalist
DX: F10.231 Alcohol dependence with withdrawal delirium (principal); F32.9 Major depressive disorder, single episode, unspecified; R45.851 Suicidal ideations; I10 Essential (primary) hypertension; J45.909 Unspecified asthma, uncomplicated; E87.6 Hypokalemia; M25.529 Pain in unspecified elbow; I80.8 Phlebitis and thrombophlebitis of other sites
CPT/HCPCS: 96374; 97116-GP; 97161-GP; 97165-GO; G0480; J0610; J1630; J1650; J2060; J2550; J3411; J3475; J3480